=== PATIENT | male | born 1975 | race American Indian/Alaskan Native ===

== ENCOUNTER 2021-11-15 13:17 | Inpatient (IN) ==
[2021-11-15] MEDS ORDERED: MEROPENEM 1,000 MG in SODIUM CHLORIDE 0.9% 100 ML IV STA ×2 (14:19→14:20)
[2021-11-15 15:13] LABS: Basophils # 0.1 10*3/uL (0.0-0.2); Basophils % 0.9 % (0.0-0.8); Eosinophils # 0.4 10*3/uL (0.0-0.87); Eosinophils % 3.5 % (0.00-10.9); Hematocrit 35.4 VOL% (42.0-52.0); Hemoglobin 12.2 GM/DL (14.0-18.0); Immature Granulocytes % 0.8 %; Immature Granulocytes Absolute 0.08 #; Lymphocytes # 2.2 10*3/uL (1.4-4.0); Lymphocytes % 21.6 % (21.2-54.2); Mean Corpuscular HGB Conc 34.5 GM/DL (32-36); Mean Corpuscular Volume 91.2 FL (87-102); Mean Platelet Volume 8.1 FL (9.6-12.0); Monocytes % 8.7 % (1.7-12.7); Neutrophils % 64.5 % (38.7-73.9); Platelet Count 570 T/CUMM (130-400); Red Blood Count 3.88 MC/CUMM (3.8-5.5); Red Cell Distribution Width 11.4 % (9.3-17.3); White Blood Count 10.3 T/CUMM (4-12)
[2021-11-15 15:41] LABS: Alanine Aminotransferase 19 U/L (16-61); Alkaline Phosphatase 102 U/L (45-117); Aspartate Amino Transferase 13 U/L (0-37); Bilirubin,Total < 0.39 MG/DL (0.20-1.00); Blood Urea Nitrogen 17 MG/DL (7-18); Calcium 8.8 MG/DL (8.5-10.1); Carbon Dioxide 28 MMOL/L (21-32); Estimated Glom Filtration Rate 67 ML/MIN; Glucose 229 MG/DL (74-106); Osmolality,Calculated 272.5 MOS/KG (273-304); Potassium 4.9 MMOL/L (3.5-5.1); Sodium 132 MMOL/L (136-145); Total Protein 7.7 G/DL (6.4-8.2)
[2021-11-15 16:18] LABS: Sedimentation Rate-Westergren 71 MM/HR (0-15)
[2021-11-15] MEDS ORDERED: ALUMINUM/MAGNES/SIMETH MAX STR 30 ML UDCUP PO PRN (16:51)
[2021-11-15] MEDS ORDERED: GLUCAGON 1 MG VIAL IM PRN ×2 (16:51→16:56)
[2021-11-15] MEDS ORDERED: DEXTROSE 50% 25 GM/50 ML VIAL IV PRN (16:51)
[2021-11-15] MEDS ORDERED: ONDANSETRON 4 MG/2 ML VIAL IV PRN (16:51)
[2021-11-15] MEDS ORDERED: ZALEPLON 5 MG CAPSULE PO PRN (16:51)
[2021-11-15] MEDS ORDERED: DEXTROSE 50% 25 GM/50 ML SYRINGE IV PRN (16:56)
[2021-11-15] MEDS: SODIUM CHLORIDE 0.9% 1,000 ML IV SCH (17:10)
[2021-11-15] MEDS ORDERED: ENOXAPARIN 40 MG/0.4 ML SYRINGE SUBCUT SCH (18:00)
[2021-11-15] MEDS ORDERED: LORazepam 2 MG/1 ML VIAL IV PRN (18:23)
[2021-11-15] MEDS: hydrALAZINE 20 MG/1 ML VIAL IV SCH (18:24)
[2021-11-15] MEDS: PIPERACILLIN/TAZOBACTAM 3,375 MG in SODIUM CHLORIDE 0.9% 100 ML IV SCH (18:24)
[2021-11-15] MEDS: ALBUTEROL/IPRATROPIUM 3 ML NEB RESP TX SCH (19:05)
[2021-11-15] MEDS ORDERED: THIAMINE INJ 100 MG, FOLIC ACID INJ 1 MG, MULTIVITAMIN INJ 10 ML in SODIUM CHLORIDE 0.9... IV SCH (21:00)
[2021-11-15] MEDS ORDERED: VANCOMYCIN INJ 2,000 MG in SODIUM CHLORIDE 0.9% 500 ML IV SCH (21:00)
[2021-11-15] MEDS: DOCUSATE SODIUM 100 MG CAPSULE PO SCH (21:22)
[2021-11-15] MEDS: INSULIN LISPRO 100 UNIT/ML SUBCUT SCH (21:27)
[2021-11-16] MEDS: hydrALAZINE 20 MG/1 ML VIAL IV SCH ×2 (00:02→06:02)
[2021-11-16] MEDS: ALBUTEROL/IPRATROPIUM 3 ML NEB RESP TX SCH ×4 (00:41→20:58)
[2021-11-16 02:11] LABS: Bacteria,Urine Occasional /HPF (Few); Bilirubin,Urine Negative (Negative); Blood, Urine Small mg/dL (Negative); Glucose,Urine (UA) 50 mg/dL (Negative); Ketones,Urine Negative (Negative); Mucus,Urine Occasional /LPF (Occasional); Nitrite,Urine Negative (Negative); Protein,Urine 100 MG/DL; RBC,Urine 2 /HPF (0-4); Urine Appearance CLEAR (Clear); Urine Color Yellow (Yellow); Urine Urobilinogen < 2.0 EU/DL (<2.0)
[2021-11-16] MEDS: PIPERACILLIN/TAZOBACTAM 3,375 MG in SODIUM CHLORIDE 0.9% 100 ML IV SCH ×3 (03:11→22:26)
[2021-11-16 04:44] LABS: Basophils # 0.1 10*3/uL (0.0-0.2); Basophils % 0.9 % (0.0-0.8); Eosinophils # 0.3 10*3/uL (0.0-0.87); Eosinophils % 3.7 % (0.00-10.9); Hematocrit 34.5 VOL% (42.0-52.0); Hemoglobin 11.5 GM/DL (14.0-18.0); Immature Granulocytes % 0.8 %; Immature Granulocytes Absolute 0.07 #; Lymphocytes # 2.1 10*3/uL (1.4-4.0); Lymphocytes % 22.5 % (21.2-54.2); Mean Corpuscular HGB Conc 33.3 GM/DL (32-36); Mean Corpuscular Volume 92.2 FL (87-102); Mean Platelet Volume 8.2 FL (9.6-12.0); Monocytes % 8.6 % (1.7-12.7); Neutrophils % 63.5 % (38.7-73.9); Platelet Count 538 T/CUMM (130-400); Red Blood Count 3.74 MC/CUMM (3.8-5.5); Red Cell Distribution Width 11.5 % (9.3-17.3); White Blood Count 9.3 T/CUMM (4-12)
[2021-11-16 05:18] LABS: Folate 15.98 NG/ML (5.38-24.0); Vitamin B12 353 PG/ML (211-911)
[2021-11-16 05:22] LABS: Alanine Aminotransferase 19 U/L (16-61); Albumin 2.7 G/DL (3.4-5.0); Alkaline Phosphatase 94 U/L (45-117); Aspartate Amino Transferase 14 U/L (0-37); Bilirubin,Total < 0.39 MG/DL (0.20-1.00); Blood Urea Nitrogen 22 MG/DL (7-18); Calcium 8.6 MG/DL (8.5-10.1); Carbon Dioxide 24 MMOL/L (21-32); Estimated Glom Filtration Rate 51 ML/MIN; Glucose 351 MG/DL (74-106); HDL Cholesterol 31 MG/DL (40-60); Osmolality,Calculated 282.4 MOS/KG (273-304); Potassium 4.4 MMOL/L (3.5-5.1); Risk Ratio 3.74; Sodium 133 MMOL/L (136-145); Total Protein 7.6 G/DL (6.4-8.2); Triglycerides 155 MG/DL (2-150)
[2021-11-16 05:48] LABS: Sedimentation Rate-Westergren 109 MM/HR (0-15)
[2021-11-16 09:33] LABS: Hemoglobin A1 (Alkaline) 97.6 % (96.5-98.5); Hemoglobin A2 (Alkaline) 2.4 % (1.5-3.5)
[2021-11-16] MEDS: DOCUSATE SODIUM 100 MG CAPSULE PO SCH ×2 (10:18→22:23)
[2021-11-16] MEDS: PANTOPRAZOLE 40 MG TABLET PO SCH (10:18)
[2021-11-16] MEDS: DIAZEPAM 2 MG TABLET PO SCH ×3 (10:18→22:25)
[2021-11-16] MEDS: INSULIN LISPRO 100 UNIT/ML SUBCUT SCH ×6 (10:19→22:24)
[2021-11-16] MEDS: GABAPENTIN 100 MG CAPSULE PO SCH ×2 (12:53→22:24)
[2021-11-16] MEDS: hydrALAZINE 25 MG TABLET PO SCH ×2 (12:53→22:26)
[2021-11-16] MEDS: INSULIN GLARGINE 100 UNIT/ML SUBCUT SCH ×2 (12:54→22:25)
[2021-11-16] MEDS: SODIUM CHLORIDE 0.9% 1,000 ML IV SCH ×2 (18:12→22:27)
[2021-11-16] MEDS: ATORVASTATIN 20 MG TABLET PO SCH (22:24)
[2021-11-16] MEDS: amLODIPine 5 MG TABLET PO SCH (22:26)
[2021-11-17] MEDS: ALBUTEROL/IPRATROPIUM 3 ML NEB RESP TX SCH ×4 (03:50→20:45)
[2021-11-17] MEDS: PIPERACILLIN/TAZOBACTAM 3,375 MG in SODIUM CHLORIDE 0.9% 100 ML IV SCH ×3 (05:50→21:16)
[2021-11-17 06:09] LABS: Basophils # 0.1 10*3/uL (0.0-0.2); Basophils % 0.9 % (0.0-0.8); Eosinophils # 0.4 10*3/uL (0.0-0.87); Hematocrit 33.1 VOL% (42.0-52.0); Hemoglobin 11.1 GM/DL (14.0-18.0); Immature Granulocytes % 0.6 %; Immature Granulocytes Absolute 0.05 #; Lymphocytes # 2.4 10*3/uL (1.4-4.0); Lymphocytes % 30.5 % (21.2-54.2); Mean Corpuscular HGB Conc 33.5 GM/DL (32-36); Mean Corpuscular Volume 93.2 FL (87-102); Mean Platelet Volume 8.1 FL (9.6-12.0); Monocytes % 7.6 % (1.7-12.7); Neutrophils % 55.4 % (38.7-73.9); Platelet Count 527 T/CUMM (130-400); Red Blood Count 3.55 MC/CUMM (3.8-5.5); Red Cell Distribution Width 11.5 % (9.3-17.3)
[2021-11-17 06:34] LABS: Alanine Aminotransferase 16 U/L (16-61); Albumin 2.5 G/DL (3.4-5.0); Alkaline Phosphatase 93 U/L (45-117); Aspartate Amino Transferase 12 U/L (0-37); Bilirubin,Total < 0.39 MG/DL (0.20-1.00); Blood Urea Nitrogen 18 MG/DL (7-18); Calcium 8.5 MG/DL (8.5-10.1); Carbon Dioxide 26 MMOL/L (21-32); Estimated Glom Filtration Rate 58 ML/MIN; Glucose 288 MG/DL (74-106); Osmolality,Calculated 287.7 MOS/KG (273-304); Potassium 4.1 MMOL/L (3.5-5.1); Sodium 138 MMOL/L (136-145); Total Protein 7.5 G/DL (6.4-8.2)
[2021-11-17] MEDS: INSULIN LISPRO 100 UNIT/ML SUBCUT SCH ×7 (09:55→21:16)
[2021-11-17] MEDS: INSULIN GLARGINE 100 UNIT/ML SUBCUT SCH ×2 (09:56→21:16)
[2021-11-17] MEDS: hydrALAZINE 25 MG TABLET PO SCH ×2 (09:56→21:15)
[2021-11-17] MEDS: OMEGA 3 ACID ETHYL ESTERS 1 GM CAPSULE PO SCH (10:43)
[2021-11-17] MEDS: MULTIVITAMIN (CENTRUM) TABLET PO SCH (10:43)
[2021-11-17] MEDS: GABAPENTIN 100 MG CAPSULE PO SCH ×2 (10:43→21:15)
[2021-11-17] MEDS: DOCUSATE SODIUM 100 MG CAPSULE PO SCH ×2 (10:43→21:15)
[2021-11-17] MEDS: FOLIC ACID 1 MG TABLET PO SCH (10:43)
[2021-11-17] MEDS: CETIRIZINE 10 MG TABLET PO SCH (10:44)
[2021-11-17] MEDS: PANTOPRAZOLE 40 MG TABLET PO SCH (10:44)
[2021-11-17] MEDS: THIAMINE 100 MG TABLET PO SCH (10:44)
[2021-11-17] MEDS: DIAZEPAM 2 MG TABLET PO SCH ×3 (10:44→21:15)
[2021-11-17] MEDS: SODIUM CHLORIDE 0.9% 1,000 ML IV SCH (13:20)
[2021-11-17] MEDS ORDERED: LIDOCAINE 2% 5 ML VIAL ONE (14:17)
[2021-11-17] MEDS ORDERED: MIDAZOLAM 2 MG/2 ML VIAL ONE (14:17)
[2021-11-17] MEDS ORDERED: fentaNYL 100 MCG/2 ML VIAL ONE (14:17)
[2021-11-17] MEDS ORDERED: propofoL 200 MG/20 ML VIAL IV ONE (14:17)
[2021-11-17] MEDS ORDERED: LIDOCAINE 1% 50 ML VIAL ONE (14:23)
[2021-11-17] MEDS ORDERED: KETAMINE 500 MG/10 ML VIAL ONE (14:28)
[2021-11-17] MEDS ORDERED: SODIUM CHLORIDE 0.9% 100 ML IV ONE (14:53)
[2021-11-17] MEDS ORDERED: ONDANSETRON 4 MG/2 ML VIAL ONE (14:53)
[2021-11-17] MEDS ORDERED: GLUCAGON 1 MG VIAL IM PRN (16:57)
[2021-11-17] MEDS ORDERED: DEXTROSE 50% 25 GM/50 ML VIAL IV PRN (16:57)
[2021-11-17] MEDS: amLODIPine 5 MG TABLET PO SCH (21:15)
[2021-11-17] MEDS: ATORVASTATIN 20 MG TABLET PO SCH (21:15)
[2021-11-18] MEDS: ALBUTEROL/IPRATROPIUM 3 ML NEB RESP TX SCH ×3 (01:30→13:52)
[2021-11-18] MEDS: SODIUM CHLORIDE 0.9% 1,000 ML IV SCH ×2 (03:16→15:08)
[2021-11-18] MEDS: PIPERACILLIN/TAZOBACTAM 3,375 MG in SODIUM CHLORIDE 0.9% 100 ML IV SCH ×2 (04:04→12:41)
[2021-11-18 04:10] LABS: Basophils # 0.1 10*3/uL (0.0-0.2); Basophils % 0.9 % (0.0-0.8); Eosinophils # 0.3 10*3/uL (0.0-0.87); Eosinophils % 3.7 % (0.00-10.9); Hematocrit 33.5 VOL% (42.0-52.0); Hemoglobin 11.1 GM/DL (14.0-18.0); Immature Granulocytes % 0.5 %; Immature Granulocytes Absolute 0.04 #; Lymphocytes # 1.7 10*3/uL (1.4-4.0); Lymphocytes % 20.6 % (21.2-54.2); Mean Corpuscular HGB Conc 33.1 GM/DL (32-36); Mean Corpuscular Volume 94.4 FL (87-102); Monocytes % 8.2 % (1.7-12.7); Neutrophils % 66.1 % (38.7-73.9); Platelet Count 488 T/CUMM (130-400); Red Blood Count 3.55 MC/CUMM (3.8-5.5); Red Cell Distribution Width 11.6 % (9.3-17.3)
[2021-11-18 04:33] LABS: Alanine Aminotransferase 13 U/L (16-61); Albumin 2.7 G/DL (3.4-5.0); Alkaline Phosphatase 80 U/L (45-117); Aspartate Amino Transferase 14 U/L (0-37); Bilirubin,Total < 0.39 MG/DL (0.20-1.00); Blood Urea Nitrogen 16 MG/DL (7-18); Calcium 8.6 MG/DL (8.5-10.1); Carbon Dioxide 26 MMOL/L (21-32); Estimated Glom Filtration Rate 63 ML/MIN; Glucose 201 MG/DL (74-106); Osmolality,Calculated 283.5 MOS/KG (273-304); Potassium 3.5 MMOL/L (3.5-5.1); Sodium 139 MMOL/L (136-145); Total Protein 7.4 G/DL (6.4-8.2)
[2021-11-18] MEDS: INSULIN LISPRO 100 UNIT/ML SUBCUT SCH ×6 (08:25→18:23)
[2021-11-18] MEDS: FOLIC ACID 1 MG TABLET PO SCH (08:26)
[2021-11-18] MEDS: INSULIN GLARGINE 100 UNIT/ML SUBCUT SCH (08:26)
[2021-11-18] MEDS: MULTIVITAMIN (CENTRUM) TABLET PO SCH (08:26)
[2021-11-18] MEDS: PANTOPRAZOLE 40 MG TABLET PO SCH (08:27)
[2021-11-18] MEDS: OMEGA 3 ACID ETHYL ESTERS 1 GM CAPSULE PO SCH (08:27)
[2021-11-18] MEDS: THIAMINE 100 MG TABLET PO SCH (08:27)
[2021-11-18] MEDS: CETIRIZINE 10 MG TABLET PO SCH (08:27)
[2021-11-18] MEDS: hydrALAZINE 25 MG TABLET PO SCH (08:27)
[2021-11-18] MEDS: DOCUSATE SODIUM 100 MG CAPSULE PO SCH (08:27)
[2021-11-18] MEDS: GABAPENTIN 100 MG CAPSULE PO SCH (10:57)
[2021-11-18] MEDS: DIAZEPAM 2 MG TABLET PO SCH ×2 (10:57→15:08)
[2021-11-18 14:37] VITALS: BP 123/80
== END 2021-11-18 18:17 | disposition home or self-care (01) | DRG 264 ==
LOC: SUATTDRO → EDUNIT# → EDBD → N.ED 13:17 → N.EDINP 13:17 → SUATTDRO 16:48 → N.EDINP 11-16 01:07 → N.5E 11-16 01:14 → SUATTDRO 11-16 08:19
PROVIDERS: ADMIT Internal Medicine; ATTEND Internal Medicine

== ENCOUNTER 2022-07-23 02:43 | Inpatient (IN) ==
[2022-07-23] MEDS ORDERED: hydrALAZINE 20 MG/1 ML VIAL IV PRN (04:13)
[2022-07-23] MEDS ORDERED: DEXTROSE 10% 250 ML BAG IV PRN (04:13)
[2022-07-23] MEDS ORDERED: ACETAMINOPHEN 325 MG TABLET PO PRN (04:13)
[2022-07-23] MEDS ORDERED: ONDANSETRON 4 MG/2 ML VIAL IV PRN (04:13)
[2022-07-23] MEDS ORDERED: MORPHINE 2 MG/1 ML SYRINGE IV PRN (04:13)
[2022-07-23] MEDS ORDERED: GLUCAGON 1 MG VIAL IM PRN ×2 (04:13→13:21)
[2022-07-23] MEDS ORDERED: ALBUTEROL/IPRATROPIUM 3 ML NEB RESP TX PRN (04:18)
[2022-07-23] MEDS: LACTATED RINGERS 1,000 ML IV SCH ×2 (05:23→20:10)
[2022-07-23 05:56] LABS: Basophils % 0.3 % (0.0-0.8); Eosinophils # 0.2 10*3/uL (0.0-0.87); Eosinophils % 3.6 % (0.00-10.9); Hematocrit 29.5 VOL% (42.0-52.0); Immature Granulocytes % 0.2 %; Immature Granulocytes Absolute 0.01 #; Lymphocytes # 2.5 10*3/uL (1.4-4.0); Mean Corpuscular HGB Conc 33.9 GM/DL (32-36); Mean Corpuscular Volume 91.6 FL (87-102); Mean Platelet Volume 9.1 FL (9.6-12.0); Monocytes # 0.5 10*3/uL (0.11-0.8); Monocytes % 7.7 % (1.7-12.7); Neutrophils % 46.2 % (38.7-73.9); Platelet Count 218 T/CUMM (130-400); Red Blood Count 3.22 MC/CUMM (3.8-5.5); Red Cell Distribution Width 13.7 % (9.3-17.3); White Blood Count 5.8 T/CUMM (4-12)
[2022-07-23 06:28] LABS: Albumin 2.5 G/DL (3.4-5.0); Bilirubin,Total 0.4 MG/DL (0.20-1.00); Calcium 8.5 MG/DL (8.5-10.1); Osmolality,Calculated 288.8 MOS/KG (273-304); PT Patient Result 11.2 SECS (10.1-12.1); Partial Thromboplastin Time 28.7 SECS (23.7-32.9); Potassium 3.3 MMOL/L (3.5-5.1)
[2022-07-23] MEDS: INSULIN LISPRO 100 UNIT/ML SUBCUT SCH ×4 (09:15→21:40)
[2022-07-23] MEDS ORDERED: MAGNESIUM SULF RIDER 2 GM/50 ML PREMIX IV ONE (09:17)
[2022-07-23] MEDS: hydrALAZINE 25 MG TABLET PO SCH ×2 (09:17→21:38)
[2022-07-23] MEDS: CHLORTHALIDONE 25 MG TABLET PO SCH (09:17)
[2022-07-23] MEDS: PANTOPRAZOLE 40 MG TABLET PO SCH (09:18)
[2022-07-23] MEDS: GABAPENTIN 100 MG CAPSULE PO SCH ×2 (09:18→21:38)
[2022-07-23] MEDS ORDERED: LACTULOSE 20 GM/30 ML UDCUP PO ONE (12:21)
[2022-07-23] MEDS ORDERED: SODIUM PHOSPHATE ENEMA 133 ML BOTTLE RECTAL PRN (12:21)
[2022-07-23] MEDS ORDERED: DEXTROSE 50% 25 GM/50 ML VIAL IV PRN (13:21)
[2022-07-23] MEDS: POLYETHYLENE GLYCOL POWDER 17 GM PACK PO SCH (13:41)
[2022-07-23 13:49] LABS: Mucus,Urine Occasional /LPF (Occasional); RBC,Urine 223 /HPF (0-4); Squamous Epithelial Cell,Urine Occasional /HPF (0-10)
[2022-07-23 13:50] LABS: Bilirubin,Urine Negative (Negative); Blood, Urine Large mg/dL (Negative); Glucose,Urine (UA) Negative (Negative); Ketones,Urine Negative (Negative); Nitrite,Urine Negative (Negative); Protein,Urine 100 mg/dL (Negative); Urine Appearance Clear (Clear); Urine Color Yellow (Yellow); Urine Specific Gravity 1.015 (1.001-1.035); Urine Urobilinogen 0.2 eU/dL (<2.0)
[2022-07-23] MEDS ORDERED: SODIUM PHOSPHATE ENEMA 133 ML BOTTLE RECTAL ONE (14:00)
[2022-07-23] MEDS: cefTRIAXone 1,000 MG in SODIUM CHLORIDE 0.9% 100 ML IV SCH (16:14)
[2022-07-23] MEDS: ATORVASTATIN 20 MG TABLET PO SCH (21:39)
[2022-07-23] MEDS: amLODIPine 5 MG TABLET PO SCH (21:39)
[2022-07-24 05:28] LABS: Basophils % 0.4 % (0.0-0.8); Eosinophils # 0.3 10*3/uL (0.0-0.87); Eosinophils % 3.3 % (0.00-10.9); Hematocrit 30.7 VOL% (42.0-52.0); Hemoglobin 10.3 GM/DL (14.0-18.0); Immature Granulocytes % 0.3 %; Immature Granulocytes Absolute 0.02 #; Lymphocytes # 3.1 10*3/uL (1.4-4.0); Lymphocytes % 38.6 % (21.2-54.2); Mean Corpuscular HGB Conc 33.6 GM/DL (32-36); Mean Corpuscular Volume 91.9 FL (87-102); Mean Platelet Volume 8.8 FL (9.6-12.0); Monocytes # 0.7 10*3/uL (0.11-0.8); Monocytes % 9.2 % (1.7-12.7); Neutrophils % 48.2 % (38.7-73.9); Platelet Count 218 T/CUMM (130-400); Red Blood Count 3.34 MC/CUMM (3.8-5.5); Red Cell Distribution Width 13.5 % (9.3-17.3); White Blood Count 7.9 T/CUMM (4-12)
[2022-07-24 05:47] LABS: Calcium 8.5 MG/DL (8.5-10.1); Potassium 3.1 MMOL/L (3.5-5.1)
[2022-07-24] MEDS: LACTATED RINGERS 1,000 ML IV SCH ×4 (06:02→19:15)
[2022-07-24] MEDS ORDERED: MAGNESIUM SULF RIDER 2 GM/50 ML PREMIX IV ONE (07:51)
[2022-07-24] MEDS: POLYETHYLENE GLYCOL POWDER 17 GM PACK PO SCH (08:08)
[2022-07-24] MEDS: CHLORTHALIDONE 25 MG TABLET PO SCH (08:08)
[2022-07-24] MEDS: GABAPENTIN 100 MG CAPSULE PO SCH ×2 (08:08→20:23)
[2022-07-24] MEDS: PANTOPRAZOLE 40 MG TABLET PO SCH (08:08)
[2022-07-24] MEDS: hydrALAZINE 25 MG TABLET PO SCH ×2 (08:09→20:23)
[2022-07-24] MEDS: INSULIN LISPRO 100 UNIT/ML SUBCUT SCH ×4 (08:19→21:26)
[2022-07-24] MEDS: POTASSIUM CHLORIDE RIDER 10 MEQ/100 ML PREMIX IV PRN ×4 (14:25→18:14)
[2022-07-24] MEDS: cefTRIAXone 1,000 MG in SODIUM CHLORIDE 0.9% 100 ML IV SCH (16:29)
[2022-07-24] MEDS: ATORVASTATIN 20 MG TABLET PO SCH (20:22)
[2022-07-24] MEDS: amLODIPine 5 MG TABLET PO SCH (20:23)
[2022-07-25 05:17] LABS: Basophils % 0.4 % (0.0-0.8); Eosinophils # 0.5 10*3/uL (0.0-0.87); Eosinophils % 5.7 % (0.00-10.9); Hemoglobin 10.5 GM/DL (14.0-18.0); Immature Granulocytes % 0.2 %; Immature Granulocytes Absolute 0.02 #; Lymphocytes # 2.6 10*3/uL (1.4-4.0); Lymphocytes % 31.7 % (21.2-54.2); Mean Corpuscular HGB Conc 33.9 GM/DL (32-36); Mean Corpuscular Volume 91.2 FL (87-102); Mean Platelet Volume 8.9 FL (9.6-12.0); Monocytes # 0.6 10*3/uL (0.11-0.8); Monocytes % 7.6 % (1.7-12.7); Neutrophils % 54.4 % (38.7-73.9); Platelet Count 236 T/CUMM (130-400); Red Cell Distribution Width 13.5 % (9.3-17.3); White Blood Count 8.1 T/CUMM (4-12)
[2022-07-25 05:37] LABS: Calcium 8.6 MG/DL (8.5-10.1); Osmolality,Calculated 280.4 MOS/KG (273-304); Potassium 3.6 MMOL/L (3.5-5.1)
[2022-07-25 05:44] LABS: Folate 23.84 NG/ML (5.38-24.0)
[2022-07-25 05:50] LABS: % Iron Saturation 19.3 % (18-50); Ferritin 152.7 ng/mL (26-388)
[2022-07-25] MEDS ORDERED: DOCUSATE SODIUM 100 MG CAPSULE PO PRN (07:33)
[2022-07-25] MEDS: INSULIN LISPRO 100 UNIT/ML SUBCUT SCH ×4 (07:36→20:15)
[2022-07-25] MEDS: POLYETHYLENE GLYCOL POWDER 17 GM PACK PO SCH (08:13)
[2022-07-25] MEDS: GABAPENTIN 100 MG CAPSULE PO SCH ×2 (08:13→20:14)
[2022-07-25] MEDS: hydrALAZINE 25 MG TABLET PO SCH ×2 (08:13→20:14)
[2022-07-25] MEDS: PANTOPRAZOLE 40 MG TABLET PO SCH (08:13)
[2022-07-25] MEDS: FERROUS SULFATE 325 MG TABLET PO SCH ×2 (08:13→16:13)
[2022-07-25] MEDS: CHLORTHALIDONE 25 MG TABLET PO SCH (08:13)
[2022-07-25] MEDS: CHOLECALCIFEROL 5,000 UNIT TABLET PO SCH (08:13)
[2022-07-25] MEDS ORDERED: ZINC OXIDE 16% PASTE 57 GM TUBE TOP PRN (12:02)
[2022-07-25] MEDS: LACTATED RINGERS 1,000 ML IV SCH ×4 (14:39→16:39)
[2022-07-25] MEDS: cefTRIAXone 1,000 MG in SODIUM CHLORIDE 0.9% 100 ML IV SCH (16:13)
[2022-07-25] MEDS: amLODIPine 5 MG TABLET PO SCH (20:14)
[2022-07-25] MEDS: ATORVASTATIN 20 MG TABLET PO SCH (20:15)
[2022-07-26] MEDS: LACTATED RINGERS 1,000 ML IV SCH ×3 (00:17→12:30)
[2022-07-26 05:02] LABS: Basophils % 0.4 % (0.0-0.8); Eosinophils # 0.6 10*3/uL (0.0-0.87); Eosinophils % 5.7 % (0.00-10.9); Hematocrit 29.6 VOL% (42.0-52.0); Hemoglobin 9.7 GM/DL (14.0-18.0); Immature Granulocytes % 0.3 %; Immature Granulocytes Absolute 0.03 #; Lymphocytes # 3.3 10*3/uL (1.4-4.0); Lymphocytes % 33.7 % (21.2-54.2); Mean Corpuscular HGB Conc 32.8 GM/DL (32-36); Mean Corpuscular Volume 92.2 FL (87-102); Mean Platelet Volume 8.6 FL (9.6-12.0); Monocytes # 0.7 10*3/uL (0.11-0.8); Monocytes % 7.1 % (1.7-12.7); Neutrophils % 52.8 % (38.7-73.9); Platelet Count 232 T/CUMM (130-400); Red Blood Count 3.21 MC/CUMM (3.8-5.5); Red Cell Distribution Width 13.4 % (9.3-17.3); White Blood Count 9.6 T/CUMM (4-12)
[2022-07-26 05:25] LABS: Calcium 8.4 MG/DL (8.5-10.1); Osmolality,Calculated 284.3 MOS/KG (273-304); Potassium 3.7 MMOL/L (3.5-5.1)
[2022-07-26] MEDS: INSULIN LISPRO 100 UNIT/ML SUBCUT SCH ×4 (11:23→20:48)
[2022-07-26] MEDS: CHLORTHALIDONE 25 MG TABLET PO SCH (11:25)
[2022-07-26] MEDS: POLYETHYLENE GLYCOL POWDER 17 GM PACK PO SCH (11:25)
[2022-07-26] MEDS: FERROUS SULFATE 325 MG TABLET PO SCH ×2 (11:25→16:47)
[2022-07-26] MEDS: hydrALAZINE 25 MG TABLET PO SCH ×2 (11:25→20:46)
[2022-07-26] MEDS: CHOLECALCIFEROL 5,000 UNIT TABLET PO SCH (11:26)
[2022-07-26] MEDS: PANTOPRAZOLE 40 MG TABLET PO SCH (11:26)
[2022-07-26] MEDS: GABAPENTIN 100 MG CAPSULE PO SCH ×2 (11:26→20:46)
[2022-07-26] MEDS ORDERED: ROPIVACAINE 0.5% 30 ML VIAL ONE ×2 (12:57→13:26)
[2022-07-26] MEDS ORDERED: LIDOCAINE 2% 5 ML VIAL ONE ×2 (13:26→13:31)
[2022-07-26] MEDS ORDERED: DEXAMETHASONE 4 MG/1 ML VIAL ONE (13:26)
[2022-07-26] MEDS ORDERED: LACTATED RINGERS 1,000 ML IV SCH (13:30)
[2022-07-26] MEDS ORDERED: ROCURONIUM 50 MG/5 ML VIAL IV ONE (13:31)
[2022-07-26] MEDS ORDERED: ETOMIDATE 40 MG/20 ML VIAL IV ONE (13:31)
[2022-07-26] MEDS ORDERED: propofoL 200 MG/20 ML VIAL IV ONE (13:31)
[2022-07-26] MEDS ORDERED: fentaNYL 100 MCG/2 ML VIAL ONE (13:32)
[2022-07-26] MEDS ORDERED: cefTRIAXone 1,000 MG VIAL ONE (14:32)
[2022-07-26] MEDS ORDERED: ALBUMIN 5% 25.0 GM/500 ML VIAL IV ONE (15:09)
[2022-07-26] MEDS ORDERED: SODIUM CHLORIDE 0.9% 1,000 ML IV ONE (15:28)
[2022-07-26] MEDS ORDERED: SODIUM CHLORIDE 0.9% 100 ML IV ONE (15:28)
[2022-07-26] MEDS ORDERED: GLYCOPYRROLATE 0.4 MG/2 ML VIAL ONE (17:17)
[2022-07-26] MEDS ORDERED: NEOSTIGMINE 10 MG/10 ML VIAL ONE (17:18)
[2022-07-26] MEDS ORDERED: SEVOFLURANE 1 UNIT/15 MINUTE INH ONE (17:36)
[2022-07-26] MEDS ORDERED: HYDROmorphone 1 MG/1 ML SYRINGE IV PRN (17:53)
[2022-07-26 18:26] LABS: Basophils % 0.3 % (0.0-0.8); Eosinophils # 0.1 10*3/uL (0.0-0.87); Eosinophils % 0.8 % (0.00-10.9); Hematocrit 27.8 VOL% (42.0-52.0); Hemoglobin 9.3 GM/DL (14.0-18.0); Immature Granulocytes % 0.5 %; Immature Granulocytes Absolute 0.05 #; Lymphocytes % 9.4 % (21.2-54.2); Mean Corpuscular HGB Conc 33.5 GM/DL (32-36); Mean Corpuscular Volume 92.7 FL (87-102); Mean Platelet Volume 8.6 FL (9.6-12.0); Monocytes # 0.2 10*3/uL (0.11-0.8); Platelet Count 210 T/CUMM (130-400); Red Cell Distribution Width 13.6 % (9.3-17.3); White Blood Count 10.6 T/CUMM (4-12)
[2022-07-26 18:31] LABS: Calcium 8.1 MG/DL (8.5-10.1); Osmolality,Calculated 284.4 MOS/KG (273-304); Potassium 3.9 MMOL/L (3.5-5.1)
[2022-07-26] MEDS: cefTRIAXone 1,000 MG in SODIUM CHLORIDE 0.9% 100 ML IV SCH (20:41)
[2022-07-26] MEDS: amLODIPine 5 MG TABLET PO SCH (20:46)
[2022-07-26] MEDS: ATORVASTATIN 20 MG TABLET PO SCH (20:46)
[2022-07-27 05:53] LABS: Basophils % 0.1 % (0.0-0.8); Hematocrit 28.3 VOL% (42.0-52.0); Hemoglobin 9.7 GM/DL (14.0-18.0); Immature Granulocytes % 0.2 %; Immature Granulocytes Absolute 0.02 #; Lymphocytes # 1.8 10*3/uL (1.4-4.0); Lymphocytes % 16.5 % (21.2-54.2); Mean Corpuscular HGB Conc 34.3 GM/DL (32-36); Mean Corpuscular Volume 90.1 FL (87-102); Mean Platelet Volume 9.1 FL (9.6-12.0); Monocytes # 0.7 10*3/uL (0.11-0.8); Monocytes % 6.4 % (1.7-12.7); Neutrophils % 76.8 % (38.7-73.9); Platelet Count 236 T/CUMM (130-400); Red Blood Count 3.14 MC/CUMM (3.8-5.5); Red Cell Distribution Width 13.4 % (9.3-17.3); White Blood Count 10.7 T/CUMM (4-12)
[2022-07-27] MEDS: LACTATED RINGERS 1,000 ML IV SCH ×3 (06:10→19:33)
[2022-07-27 06:26] LABS: Calcium 8.5 MG/DL (8.5-10.1); Osmolality,Calculated 277.8 MOS/KG (273-304); Potassium 3.6 MMOL/L (3.5-5.1)
[2022-07-27] MEDS: INSULIN LISPRO 100 UNIT/ML SUBCUT SCH ×4 (08:13→20:51)
[2022-07-27] MEDS: CHLORTHALIDONE 25 MG TABLET PO SCH (08:13)
[2022-07-27] MEDS: hydrALAZINE 25 MG TABLET PO SCH ×2 (08:13→20:45)
[2022-07-27] MEDS: CHOLECALCIFEROL 5,000 UNIT TABLET PO SCH (08:13)
[2022-07-27] MEDS: FERROUS SULFATE 325 MG TABLET PO SCH ×2 (08:13→16:03)
[2022-07-27] MEDS: POLYETHYLENE GLYCOL POWDER 17 GM PACK PO SCH (08:13)
[2022-07-27] MEDS: GABAPENTIN 100 MG CAPSULE PO SCH ×2 (08:13→20:51)
[2022-07-27] MEDS: PANTOPRAZOLE 40 MG TABLET PO SCH (08:13)
[2022-07-27] MEDS: cefTRIAXone 1,000 MG in SODIUM CHLORIDE 0.9% 100 ML IV SCH (16:09)
[2022-07-27] MEDS: amLODIPine 5 MG TABLET PO SCH (20:45)
[2022-07-27] MEDS: POTASSIUM CHLORIDE RIDER 10 MEQ/100 ML PREMIX IV PRN (20:49)
[2022-07-27] MEDS: ATORVASTATIN 20 MG TABLET PO SCH (20:51)
[2022-07-28] MEDS: LACTATED RINGERS 1,000 ML IV SCH ×2 (02:36→05:22)
[2022-07-28 06:07] LABS: Basophils % 0.3 % (0.0-0.8); Eosinophils # 0.4 10*3/uL (0.0-0.87); Eosinophils % 4.8 % (0.00-10.9); Hematocrit 25.9 VOL% (42.0-52.0); Hemoglobin 8.7 GM/DL (14.0-18.0); Immature Granulocytes % 0.2 %; Immature Granulocytes Absolute 0.02 #; Lymphocytes # 2.9 10*3/uL (1.4-4.0); Lymphocytes % 31.6 % (21.2-54.2); Mean Corpuscular HGB Conc 33.6 GM/DL (32-36); Mean Corpuscular Volume 92.8 FL (87-102); Monocytes # 0.6 10*3/uL (0.11-0.8); Monocytes % 6.4 % (1.7-12.7); Neutrophils % 56.7 % (38.7-73.9); Platelet Count 239 T/CUMM (130-400); Red Blood Count 2.79 MC/CUMM (3.8-5.5); Red Cell Distribution Width 13.5 % (9.3-17.3); White Blood Count 9.2 T/CUMM (4-12)
[2022-07-28 06:20] LABS: Osmolality,Calculated 275.8 MOS/KG (273-304); Potassium 3.3 MMOL/L (3.5-5.1)
[2022-07-28] MEDS: POTASSIUM CHLORIDE RIDER 10 MEQ/100 ML PREMIX IV PRN (06:30)
[2022-07-28] MEDS ORDERED: POTASSIUM CHLORIDE 20 MEQ TABLET PO ONE (08:00)
[2022-07-28] MEDS ORDERED: MAGNESIUM SULF RIDER 2 GM/50 ML PREMIX IV ONE (08:00)
[2022-07-28] MEDS: INSULIN LISPRO 100 UNIT/ML SUBCUT SCH ×4 (08:17→22:02)
[2022-07-28] MEDS: PANTOPRAZOLE 40 MG TABLET PO SCH (09:15)
[2022-07-28] MEDS: CHLORTHALIDONE 25 MG TABLET PO SCH (09:15)
[2022-07-28] MEDS: CHOLECALCIFEROL 5,000 UNIT TABLET PO SCH (09:16)
[2022-07-28] MEDS: hydrALAZINE 25 MG TABLET PO SCH ×2 (09:16→21:22)
[2022-07-28] MEDS: GABAPENTIN 100 MG CAPSULE PO SCH ×2 (09:16→21:22)
[2022-07-28] MEDS: FERROUS SULFATE 325 MG TABLET PO SCH ×2 (09:16→16:21)
[2022-07-28] MEDS: POLYETHYLENE GLYCOL POWDER 17 GM PACK PO SCH (09:19)
[2022-07-28] MEDS: SODIUM CHLORIDE 0.9% 1,000 ML IV SCH (14:49)
[2022-07-28] MEDS: ATORVASTATIN 20 MG TABLET PO SCH (21:22)
[2022-07-28] MEDS: amLODIPine 5 MG TABLET PO SCH (22:00)
[2022-07-29] MEDS: SODIUM CHLORIDE 0.9% 1,000 ML IV SCH ×2 (02:23→07:06)
[2022-07-29 06:47] LABS: Basophils % 0.4 % (0.0-0.8); Eosinophils # 0.4 10*3/uL (0.0-0.87); Eosinophils % 5.9 % (0.00-10.9); Hematocrit 26.6 VOL% (42.0-52.0); Hemoglobin 8.9 GM/DL (14.0-18.0); Immature Granulocytes % 0.4 %; Immature Granulocytes Absolute 0.03 #; Lymphocytes # 2.1 10*3/uL (1.4-4.0); Lymphocytes % 28.7 % (21.2-54.2); Mean Corpuscular HGB Conc 33.5 GM/DL (32-36); Mean Corpuscular Volume 92.7 FL (87-102); Mean Platelet Volume 8.9 FL (9.6-12.0); Monocytes # 0.5 10*3/uL (0.11-0.8); Monocytes % 7.2 % (1.7-12.7); Neutrophils % 57.4 % (38.7-73.9); Platelet Count 248 T/CUMM (130-400); Red Blood Count 2.87 MC/CUMM (3.8-5.5); Red Cell Distribution Width 13.3 % (9.3-17.3); White Blood Count 7.3 T/CUMM (4-12)
[2022-07-29 07:01] LABS: Calcium 8.4 MG/DL (8.5-10.1); Osmolality,Calculated 280.4 MOS/KG (273-304); Potassium 3.6 MMOL/L (3.5-5.1)
[2022-07-29] MEDS: CHLORTHALIDONE 25 MG TABLET PO SCH (09:24)
[2022-07-29] MEDS: INSULIN LISPRO 100 UNIT/ML SUBCUT SCH ×2 (09:24→11:51)
[2022-07-29] MEDS: GABAPENTIN 100 MG CAPSULE PO SCH (09:24)
[2022-07-29] MEDS: POLYETHYLENE GLYCOL POWDER 17 GM PACK PO SCH (09:24)
[2022-07-29] MEDS: FERROUS SULFATE 325 MG TABLET PO SCH (09:24)
[2022-07-29] MEDS: hydrALAZINE 25 MG TABLET PO SCH (09:24)
[2022-07-29] MEDS: PANTOPRAZOLE 40 MG TABLET PO SCH (09:25)
[2022-07-29] MEDS: CHOLECALCIFEROL 5,000 UNIT TABLET PO SCH (09:25)
[2022-07-29 11:31] VITALS: BP 130/78
== END 2022-07-29 12:40 | DRG 660 ==
LOC: SUATTDRO 02:43 → N.3E 02:43
PROVIDERS: ADMIT Family Medicine; ATTEND Internal Medicine